=== PATIENT | female | born 1965 | race Caucasian/White ===

== ENCOUNTER 2016-08-04 17:05 | Emergency (ER) | payer MEDICAID ==
[~2016-08-04] VITALS: Ht 162.6 cm; Wt 93.9 kg
[2016-08-04 17:41] LABS: *BILIRUBIN,URIN NEGATIVE (NEGATIVE); *BLOOD, URINE NEGATIVE (NEGATIVE); *CLARITY,URINE CLEAR (CLEAR); *COLOR,URINE YELLOW (YELLOW); *KETONES,URINE NEGATIVE (NEGATIVE); *PROTEIN,URINE NEGATIVE (NEGATIVE); LEUKOCYTE ESTERASE ,URINE TRACE (NEGATIVE); NITRITE, URINE NEGATIVE (NEGATIVE); UGLUCOSE NEGATIVE (NEGATIVE)
[2016-08-04 17:50] LABS: BACTERIA,URINE FEW /HPF (NONE SEEN); MUCUS,URINE FEW /LPF (0-FEW); RBC,URINE 0-3 /HPF (0-3); SQUAMOUS EPITHELIAL CELL,UR FEW /HPF (NONE SEEN); URINE AMORPHOUS URATE FEW /HPF
[2016-08-04] MEDS ORDERED: SULFAMETH/TRIMETH 800/160 MG TABLET PO ONE (18:00)
[2016-08-04] MEDS ORDERED: PHENAZOPYRIDINE HCL 100 MG TABLET PO ONE (18:00)
--- NOTE | 2016-08-04 18:00 | NUR ---
Patient discharged to home in stable conditon. Written and verbal after care instructions given. Patient verbalizes understanding of instructions. Stressed follow up with pmd.
[2016-08-04] MEDS ORDERED: PHENAZOPYRIDINE HCL 100 MG TABLET ONE (18:09)
[2016-08-04] MEDS ORDERED: SULFAMETH/TRIMETH 800/160 MG TABLET ONE (18:10)
== END 2016-08-04 18:00 | disposition home or self-care (01) ==
LOC: ER 17:06
DX: N39.0 Urinary tract infection, site not specified (principal); E03.9 Hypothyroidism, unspecified
CPT/HCPCS: A4663

== ENCOUNTER 2017-04-26 16:43 | Emergency (ER) | payer MEDICAID ==
[~2017-04-26] VITALS: Ht 162.6 cm; Wt 97.5 kg
[2017-04-26] MEDS ORDERED: OXYB5TAB11 PO (17:15)
[2017-04-26] MEDS ORDERED: ASPI81TA31 PO (17:15)
[2017-04-26] MEDS ORDERED: GABA-534 PO (17:15)
[2017-04-26] MEDS ORDERED: LOSA25TA13 PO (17:15)
[2017-04-26] MEDS ORDERED: CITA10TA9 PO (17:15)
[2017-04-26] MEDS ORDERED: LEVO175T7 PO (17:15)
[2017-04-26] MEDS ORDERED: ATOR10TA PO (17:16)
[2017-04-26] MEDS ORDERED: HYDR25TA4 PO (17:16)
[2017-04-26] MEDS ORDERED: BACL20TA PO (17:16)
--- NOTE | 2017-04-26 17:22 | NUR ---
Dr Pinto at the bedside for MSE.
[2017-04-26] MEDS ORDERED: HYDROMORPHONE 2 MG/1 ML DISP.SYRIN ONE (17:43)
[2017-04-26] MEDS ORDERED: ONDANSETRON 4 MG/2 ML VIAL ONE ×2 (17:43→19:08)
[2017-04-26] MEDS ORDERED: HYDROMORPHONE 1 MG/1 ML DISP.SYRIN IV ONE (17:45)
[2017-04-26] MEDS ORDERED: ONDANSETRON IV *ER 4 MG/2 ML VIAL IV ONE ×2 (17:45→19:15)
--- NOTE | 2017-04-26 17:50 | NUR ---
Female loader operator/ground leader accompanied female patient for (Dr Pinto).
--- NOTE | 2017-04-26 19:47 | NUR ---
Pt back from CT. Minor nausea still, pain 10/10.
--- NOTE | 2017-04-26 21:03 | NUR ---
IV Removed intact, site okay, bandaged. Gave pt RX and d/c instructions, verbalized understanding.
== END 2017-04-26 21:07 | disposition home or self-care (01) ==
LOC: ER 16:45
DX: M54.17 Radiculopathy, lumbosacral region (principal); I10 Essential (primary) hypertension; E78.00 Pure hypercholesterolemia, unspecified; G89.29 Other chronic pain; E03.9 Hypothyroidism, unspecified; Z79.82 Long term (current) use of aspirin; Z79.899 Other long term (current) drug therapy
CPT/HCPCS: 36415; 72131; 84703; 96374; 96375; 96376; 99284; A4663; J1170; J2405 ×2